=== PATIENT | female | born 1930 | race Caucasian/White ===

== ENCOUNTER 2016-12-19 09:06 | Emergency (ER) | payer MEDICARE ==
[~2016-12-19] VITALS: Ht 165.1 cm; Wt 74.4 kg
[~2016-12-19 09:06] MED LIST: ARTISOL10 OU; BENI; BENI20TA11 OR; BENICAR/HCTZ PO; CALCCHW12 OR; FERR325T OR; VIT D 2000 OR
[2016-12-19] MEDS ORDERED: SYSTSOL14 OU (09:17)
[2016-12-19] MEDS ORDERED: PRESCAP PO (09:17)
[2016-12-19] MEDS ORDERED: LOSA100T PO (09:17)
[2016-12-19] MEDS ORDERED: ALEV220C2 PO (09:17)
--- NOTE | 2016-12-19 09:56 | REP ---
Right hip series: Two views. History: Hip pain. No known injury. Findings: AP and frog-leg views of the right hip demonstrate mild femoral acetabular spurring and narrowing. No erosive changes seen. No fractures noted. There is some diffuse osteopenia. Impression: Mild right hip joint osteoarthritic spurring. Diffuse osteopenia. No acute bony abnormality. Signed by Yaron Hightower MD 12/19/2016 12:30 P
[2016-12-19] MEDS ORDERED: ACET30TAB PO (10:12)
[2016-12-19 10:18] VITALS: BP 150/67
== END 2016-12-19 10:42 | disposition home or self-care (01) ==
LOC: M ED 09:58
DX: M70.71 Other bursitis of hip, right hip (principal); I10 Essential (primary) hypertension; Z90.79 Acquired absence of other genital organ(s); Z79.899 Other long term (current) drug therapy

== ENCOUNTER → 2017-03-24 | Outpatient (CLI) | payer MEDICARE ==
[~2017-03-24] MED LIST changes: +ACET30TAB PO; +ALEV220C2 PO; +LOSA100T8 PO; +PRESCAP PO; +SYSTSOL14 OU
--- NOTE | 2017-03-24 10:37 | REP ---
CHEST, TWO VIEWS: HISTORY: Hypertension. COMPARISON: 05/21/2010 The lungs are hyperinflated. An increase in the interstitial markings is present in the lungs consistent with chronic interstitial fibrosis. The cardiac silhouette is enlarged. The pulmonary vasculature is normal in appearance. Degenerative changes is present in the thoracic spine. IMPRESSION: 1. Chronic interstitial fibrosis. 2. Cardiomegaly. Signed by Arcenio John MD 03/24/2017 11:29 A
[2017-03-24 10:44] LABS: ANION GAP 8 MEQ/L (8-16); BLOOD UREA NITROGEN 12 MG/DL (7-18); CALCIUM LEVEL 8.6 MG/DL (8.8-10.2); CARBON DIOXIDE LEVEL 30 MEQ/L (21-32); CHLORIDE LEVEL 102 MEQ/L (98-107); CREATININE FOR GFR 0.76 MG/DL (0.55-1.02); GLOMERULAR FILTRATION RATE > 60.0 (>32); GLUCOSE, FASTING 101 MG/DL (83-110); POTASSIUM SERUM 3.9 MEQ/L (3.5-5.1); SODIUM LEVEL 140 MEQ/L (136-145)
--- NOTE | 2017-03-24 14:49 | ECGEPIP ---
Stationary ECG Study [facility] Test Date: 2017-03-24 Pat Name: OJ OSWALD Department: Room: - Gender: F Site Manager: : [id number] Requested By: DAO Berumen Order Number: [id number] Reading MD: Cinthia Noel Measurements Intervals [place] Rate: 85 P: -30 NH: 182 QRS: -25 QRSD: 90 T: 30 QT: 367 QTc: 437 Interpretive Statements SINUS RHYTHM SEPTAL MYOCARDIAL INFARCTION, OF INDETERMINATE AGE POSSIBLE Left axis deviation NO PRIOR Electronically Signed On 03-24-2017 14:49:26 EDT by Cinthia Noel
== END ==
LOC: M LAB 09:31
PROVIDERS: ATTEND Ophthalmology
DX: J84.10 Pulmonary fibrosis, unspecified (principal); I51.7 Cardiomegaly

== ENCOUNTER → 2020-11-27 | Outpatient (REF) | payer MEDICARE ==
[~2020-11-27] MED LIST changes: +ACET-716 PO; -ACET30TAB PO
== END ==
LOC: M LAB REF 16:13
PROVIDERS: ATTEND Internal Medicine
DX: G31.84 Mild cognitive impairment of uncertain or unknown etiology (principal)

== ENCOUNTER → 2021-01-07 | Outpatient (CLI) | payer MEDICARE ==
--- NOTE | 2021-01-07 14:55 | REPVR ---
PROCEDURE INFORMATION: Exam: MR Head Without Contrast Exam date and time: 01/07/2021 2:34 PM Age: 89 years old Clinical indication: Other: Cognitive impairment TECHNIQUE: Imaging protocol: MR of the head without contrast. COMPARISON: No relevant prior studies available. FINDINGS: Brain: There is mild patchy increased T2 signal intensity within the bilateral cerebral periventricular white matter, consistent with chronic microvascular ischemic changes. There are multiple small focal areas of chronic ischemia in bilateral frontal, parietal and periatrial white matter. There is no abnormal diffusion weighted signal intensity to suggest an acute ischemic event. There is moderate diffuse cerebral atrophy present, consistent with this patient's age. Cerebral ventricles: The ventricular system demonstrates moderate diffuse compensatory enlargement. Bones/joints: Unremarkable. Paranasal sinuses: Mild mucosal thickening is seen in the paranasal sinuses. Mastoid air cells: Normal as visualized. No mastoid effusion. Orbital cavity: Unremarkable. Soft tissues: Unremarkable. IMPRESSION: 1. No acute infarction, masses or hemorrhage is seen. No acute intracranial abnormality is identified. 2. Diffuse age-related cerebral atrophy and mild chronic microvascular white matter ischemic changes, without evidence of an acute intracranial abnormality. Electronically signed by: Lion Machado On 01/07/2021 14:54:51 PM
== END ==
LOC: M RAD 13:16
PROVIDERS: ATTEND Internal Medicine
DX: G31.84 Mild cognitive impairment of uncertain or unknown etiology (principal)

== ENCOUNTER 2022-02-02 11:01 | Inpatient (IN) | payer MEDICARE ==
[~2022-02-02] VITALS: Ht 165.1 cm; Wt 70.0 kg
[2022-02-02] MEDS: OLMESARTAN MEDOXOMIL 20 MG TAB (BENICAR) PO SCH (09:00)
[2022-02-02 12:42] LABS: BASO % 0.1 % (0.0-1.0); EOS % 0.1 % (0.0-3.0); HEMATOCRIT 41.8 % (36.0-47.0); HEMOGLOBIN 13.6 g/dl (12.0-15.5); LYMPH # 1.6 10^3/uL (1.5-5.0); LYMPH % 23.8 % (24.0-44.0); MEAN CORPUSCULAR HEMOGLOBIN 27.1 pg (27.0-33.0); MEAN CORPUSCULAR HGB CONC 32.5 g/dl (32.0-36.5); MEAN CORPUSCULAR VOLUME 83.4 fl (80.0-96.0); MONO # 0.5 10^3/uL (0.0-0.8); MONO % 7.4 % (2.0-8.0); NEUTROPHILS # 4.7 10^3/uL (1.5-8.5); NEUTROPHILS % 68.3 % (36.0-66.0); PLATELET COUNT, AUTOMATED 268 10^3/uL (150-450); RED BLOOD COUNT 5.01 10^6/uL (4.00-5.40); WHITE BLOOD COUNT 6.9 10^3/uL (4.0-10.0)
[2022-02-02 13:27] LABS: ALBUMIN 3.8 GM/DL (3.2-5.2); BILIRUBIN,DIRECT 0.4 MG/DL (0.0-0.2); BILIRUBIN,TOTAL 1.4 MG/DL (0.2-1.0); CALCIUM LEVEL 8.9 MG/DL (8.8-10.2); CREATININE FOR GFR 1.22 MG/DL (0.55-1.30); GLOMERULAR FILTRATION RATE 44.2 (>32); POTASSIUM SERUM 2.4 MEQ/L (3.5-5.1); TOTAL PROTEIN 6.6 GM/DL (6.4-8.2)
[2022-02-02] MEDS ORDERED: POTASSIUM CHLORIDE 10MEQ SR TABLET PO ONE (14:10)
[2022-02-02] MEDS ORDERED: KCL 10MEQ/100ML SWI (KRUN) 10 MEQ in IV 1 EA IV ONE (14:15)
[2022-02-02] MEDS: NS 1,000 ML IV SCH (14:39)
[2022-02-02 15:14] LABS: RSV AMPLIFICATION NEGATIVE (NEGATIVE)
[2022-02-02 16:05] LABS: MAGNESIUM LEVEL 1.7 MG/DL (1.8-2.4)
[2022-02-02] MEDS ORDERED: OLME1TAB51 PO (16:48)
[2022-02-02] MEDS ORDERED: PRESCAP PO (16:48)
[2022-02-02] MEDS ORDERED: HOME MED LIST COMPLETE! XX SCH (16:50)
[2022-02-02 18:00] VITALS: BP 132/78
[2022-02-02] MEDS ORDERED: LOPERAMIDE 2 MG CAPLET PO ONE ×2 (19:15→20:00)
[2022-02-02] MEDS ORDERED: PINK BISMUTH SUSP 524MG/30ML ORAL SYRINGE PO PRN (19:15)
[2022-02-02 20:46] LABS: CALCIUM LEVEL 9.2 MG/DL (8.8-10.2); CREATININE FOR GFR 1.25 MG/DL (0.55-1.30)
[2022-02-02 22:00] VITALS: BP 133/78
[2022-02-03] MEDS ORDERED: LOPERAMIDE 2 MG CAPLET PO ONE (02:00)
[2022-02-03] MEDS: NS 1,000 ML IV SCH ×3 (05:35→20:10)
[2022-02-03 06:00] VITALS: BP 126/64
[2022-02-03 06:14] LABS: HEMOGLOBIN 12.9 g/dl (12.0-15.5); MEAN CORPUSCULAR HEMOGLOBIN 26.9 pg (27.0-33.0); MEAN CORPUSCULAR HGB CONC 32.3 g/dl (32.0-36.5); MEAN CORPUSCULAR VOLUME 83.3 fl (80.0-96.0); PLATELET COUNT, AUTOMATED 241 10^3/uL (150-450); WHITE BLOOD COUNT 6.6 10^3/uL (4.0-10.0)
[2022-02-03 06:43] LABS: ALBUMIN 3.4 GM/DL (3.2-5.2); BILIRUBIN,TOTAL 1.3 MG/DL (0.2-1.0); C REACTIVE PROTEIN QUANTITATIV 0.67 MG/DL (0.00-0.30); CALCIUM LEVEL 8.7 MG/DL (8.8-10.2); CREATININE FOR GFR 1.05 MG/DL (0.55-1.30); FREE T3 2.7 PG/ML (2.2-4.0); FREE T4 1.43 NG/DL (0.76-1.46); GLOMERULAR FILTRATION RATE 52.5 (>32); POTASSIUM SERUM 2.6 MEQ/L (3.5-5.1); THYROID STIMULATING HORMONE 1.36 uIU/ML (0.358-3.740); TOTAL PROTEIN 6.2 GM/DL (6.4-8.2)
[2022-02-03 06:53] LABS: ERYTHROCYTE SEDIMENTATION RATE 12 mm/hr (0-30)
[2022-02-03] MEDS ORDERED: POTASSIUM CHLORIDE 10MEQ SR TABLET PO ONE ×2 (08:00→16:10)
[2022-02-03 08:05] LABS: MAGNESIUM LEVEL 1.6 MG/DL (1.8-2.4)
[2022-02-03] MEDS: ENOXAPARIN 40MG/0.4ML SYRINGE (J1650 PER 10MG) SC SCH (08:22)
[2022-02-03] MEDS: KCL 10MEQ/100ML SWI (KRUN) 10 MEQ in IV 1 EA IV SCH ×4 (08:22→15:37)
[2022-02-03] MEDS: OLMESARTAN MEDOXOMIL 20 MG TAB (BENICAR) PO SCH (08:27)
[2022-02-03] MEDS: LACTOBACILLUS ACIDOPHILUS CAP (BACID) PO SCH (08:27)
[2022-02-03] MEDS ORDERED: LOSARTAN 50MG TABLET PO SCH (09:00)
[2022-02-03] MEDS ORDERED: MAG SULF 1GM/100ML (MAG RUN) 1 GM in IV 1 EA IV ONE ×2 (09:55→11:00)
[2022-02-03] MEDS: LOPERAMIDE 2 MG CAPLET PO PRN ×4 (10:25→18:20)
[2022-02-03] MEDS ORDERED: ISOVUE-370 76% 100ML VIAL As Ordered ONE (11:20)
[2022-02-03] MEDS: CHOLESTYRAMINE 4 GM PWD PKT PO SCH (15:42)
[2022-02-03 20:50] LABS: CALCIUM LEVEL 9.1 MG/DL (8.8-10.2); CREATININE FOR GFR 1.27 MG/DL (0.55-1.30); GLOMERULAR FILTRATION RATE 42.2 (>32)
[2022-02-03] MEDS: QUEtiapine FUMARATE 25 MG TAB PO SCH (21:00)
[2022-02-04] MEDS ORDERED: POTASSIUM CHLORIDE 10MEQ SR TABLET PO ONE ×2 (00:55→20:15)
[2022-02-04] MEDS: LOPERAMIDE 2 MG CAPLET PO PRN ×4 (01:21→19:22)
[2022-02-04 05:18] VITALS: BP 135/55
[2022-02-04] MEDS: NS 1,000 ML IV SCH ×2 (05:41→16:10)
[2022-02-04 06:35] LABS: HEMATOCRIT 44.1 % (36.0-47.0); HEMOGLOBIN 14.1 g/dl (12.0-15.5); MEAN CORPUSCULAR HEMOGLOBIN 26.7 pg (27.0-33.0); MEAN CORPUSCULAR VOLUME 83.4 fl (80.0-96.0); PLATELET COUNT, AUTOMATED 295 10^3/uL (150-450); RED BLOOD COUNT 5.29 10^6/uL (4.00-5.40); WHITE BLOOD COUNT 7.1 10^3/uL (4.0-10.0)
[2022-02-04 07:03] LABS: ALBUMIN 3.8 GM/DL (3.2-5.2); BILIRUBIN,TOTAL 1.1 MG/DL (0.2-1.0); CALCIUM LEVEL 9.3 MG/DL (8.8-10.2); CREATININE FOR GFR 1.13 MG/DL (0.55-1.30); GLOMERULAR FILTRATION RATE 48.3 (>32); POTASSIUM SERUM 3.6 MEQ/L (3.5-5.1); TOTAL PROTEIN 6.7 GM/DL (6.4-8.2)
[2022-02-04] MEDS: ENOXAPARIN 40MG/0.4ML SYRINGE (J1650 PER 10MG) SC SCH (09:02)
[2022-02-04] MEDS: LACTOBACILLUS ACIDOPHILUS CAP (BACID) PO SCH (09:05)
[2022-02-04] MEDS: OLMESARTAN MEDOXOMIL 20 MG TAB (BENICAR) PO SCH (09:05)
[2022-02-04] MEDS: POTASSIUM CHLORIDE 10MEQ SR TABLET PO SCH (09:59)
[2022-02-04 13:38] LABS: MAGNESIUM LEVEL 2.5 MG/DL (1.8-2.4); POTASSIUM SERUM 3.5 MEQ/L (3.5-5.1)
[2022-02-04] MEDS: CHOLESTYRAMINE 4 GM PWD PKT PO SCH (13:45)
[2022-02-04 14:00] VITALS: BP 119/54
[2022-02-04] MEDS: QUEtiapine FUMARATE 25 MG TAB PO SCH (21:00)
[2022-02-04 21:48] VITALS: BP 116/57
[2022-02-05] MEDS: LOPERAMIDE 2 MG CAPLET PO PRN ×3 (01:32→19:43)
[2022-02-05] MEDS: NS 1,000 ML IV SCH ×3 (02:10→16:49)
[2022-02-05 06:00] VITALS: BP 108/43
[2022-02-05 06:01] LABS: HEMATOCRIT 43.4 % (36.0-47.0); HEMOGLOBIN 13.5 g/dl (12.0-15.5); MEAN CORPUSCULAR HEMOGLOBIN 26.7 pg (27.0-33.0); MEAN CORPUSCULAR HGB CONC 31.1 g/dl (32.0-36.5); MEAN CORPUSCULAR VOLUME 85.9 fl (80.0-96.0); PLATELET COUNT, AUTOMATED 263 10^3/uL (150-450); RED BLOOD COUNT 5.05 10^6/uL (4.00-5.40)
[2022-02-05 06:26] LABS: ALBUMIN 3.5 GM/DL (3.2-5.2); BILIRUBIN,TOTAL 0.8 MG/DL (0.2-1.0); CALCIUM LEVEL 9.4 MG/DL (8.8-10.2); CREATININE FOR GFR 1.64 MG/DL (0.55-1.30); GLOMERULAR FILTRATION RATE 31.4 (>32); POTASSIUM SERUM 3.2 MEQ/L (3.5-5.1); TOTAL PROTEIN 6.5 GM/DL (6.4-8.2)
[2022-02-05] MEDS: LACTOBACILLUS ACIDOPHILUS CAP (BACID) PO SCH (08:30)
[2022-02-05] MEDS: POTASSIUM CHLORIDE 10MEQ SR TABLET PO SCH (08:31)
[2022-02-05] MEDS: ENOXAPARIN 40MG/0.4ML SYRINGE (J1650 PER 10MG) SC SCH (08:31)
[2022-02-05] MEDS: OLMESARTAN MEDOXOMIL 20 MG TAB (BENICAR) PO SCH (08:31)
[2022-02-05] MEDS ORDERED: POTASSIUM CHLORIDE 10MEQ SR TABLET PO ONE (12:00)
[2022-02-05 14:00] VITALS: BP 104/45
[2022-02-05] MEDS: CHOLESTYRAMINE 4 GM PWD PKT PO SCH (14:26)
[2022-02-05] MEDS ORDERED: LIDOCAINE 1% MDV 20ML VIAL As Ordered ONE (15:44)
[2022-02-05] MEDS: QUEtiapine FUMARATE 25 MG TAB PO SCH (19:43)
[2022-02-05] MEDS ORDERED: SODIUM CHLORIDE 0.9% INJ 10 ML SYR IV PRN (20:05)
[2022-02-05] MEDS: SODIUM CHLORIDE 0.9% INJ 10 ML SYR IV SCH (21:23)
[2022-02-05 22:00] VITALS: BP 114/52
[2022-02-06] MEDS: LOPERAMIDE 2 MG CAPLET PO PRN ×2 (04:28→20:15)
[2022-02-06 06:00] VITALS: BP 106/40
[2022-02-06 06:17] LABS: HEMATOCRIT 39.6 % (36.0-47.0); HEMOGLOBIN 12.3 g/dl (12.0-15.5); MEAN CORPUSCULAR HGB CONC 31.1 g/dl (32.0-36.5); PLATELET COUNT, AUTOMATED 237 10^3/uL (150-450); RED BLOOD COUNT 4.55 10^6/uL (4.00-5.40)
[2022-02-06 06:33] LABS: ALBUMIN 3.3 GM/DL (3.2-5.2); BILIRUBIN,TOTAL 0.6 MG/DL (0.2-1.0); CALCIUM LEVEL 8.6 MG/DL (8.8-10.2); CREATININE FOR GFR 2.52 MG/DL (0.55-1.30); GLOMERULAR FILTRATION RATE 19.1 (>32); POTASSIUM SERUM 3.5 MEQ/L (3.5-5.1)
[2022-02-06] MEDS: LACTOBACILLUS ACIDOPHILUS CAP (BACID) PO SCH (08:22)
[2022-02-06] MEDS: ENOXAPARIN 40MG/0.4ML SYRINGE (J1650 PER 10MG) SC SCH (08:22)
[2022-02-06] MEDS: POTASSIUM CHLORIDE 10MEQ SR TABLET PO SCH (08:22)
[2022-02-06] MEDS: NS 1,000 ML IV SCH ×2 (08:23→15:45)
[2022-02-06] MEDS: CHOLESTYRAMINE 4 GM PWD PKT PO SCH (10:27)
[2022-02-06 14:00] VITALS: BP 123/41
[2022-02-06] MEDS: SODIUM CHLORIDE 0.9% INJ 10 ML SYR IV SCH (20:13)
[2022-02-06 22:00] VITALS: BP 115/48
[2022-02-07] MEDS: NS 1,000 ML IV SCH ×4 (02:25→23:07)
[2022-02-07 06:00] VITALS: BP 142/69
[2022-02-07 07:08] LABS: WHITE BLOOD COUNT 8.5 10^3/uL (4.0-10.0)
[2022-02-07 07:09] LABS: HEMATOCRIT 41.2 % (36.0-47.0); HEMOGLOBIN 12.9 g/dl (12.0-15.5); MEAN CORPUSCULAR HEMOGLOBIN 27.3 pg (27.0-33.0); MEAN CORPUSCULAR HGB CONC 31.3 g/dl (32.0-36.5); MEAN CORPUSCULAR VOLUME 87.1 fl (80.0-96.0); PLATELET COUNT, AUTOMATED 251 10^3/uL (150-450); RED BLOOD COUNT 4.73 10^6/uL (4.00-5.40)
[2022-02-07 07:33] LABS: ALBUMIN 3.3 GM/DL (3.2-5.2); BILIRUBIN,TOTAL 0.8 MG/DL (0.2-1.0); CALCIUM LEVEL 8.4 MG/DL (8.8-10.2); CREATININE FOR GFR 2.06 MG/DL (0.55-1.30); GLOMERULAR FILTRATION RATE 24.1 (>32); POTASSIUM SERUM 3.6 MEQ/L (3.5-5.1); TOTAL PROTEIN 6.1 GM/DL (6.4-8.2)
[2022-02-07] MEDS: CHOLESTYRAMINE 4 GM PWD PKT PO SCH (09:15)
[2022-02-07] MEDS: POTASSIUM CHLORIDE 10MEQ SR TABLET PO SCH (09:15)
[2022-02-07] MEDS: ENOXAPARIN 40MG/0.4ML SYRINGE (J1650 PER 10MG) SC SCH (09:16)
[2022-02-07] MEDS: LACTOBACILLUS ACIDOPHILUS CAP (BACID) PO SCH (09:16)
[2022-02-07] MEDS: LOPERAMIDE 2 MG CAPLET PO PRN ×2 (09:20→14:04)
[2022-02-07] MEDS: amLODIPine 5 MG TAB PO SCH (11:17)
[2022-02-07 14:00] VITALS: BP 130/70
[2022-02-07] MEDS: SODIUM CHLORIDE 0.9% INJ 10 ML SYR IV SCH (20:05)
[2022-02-07 22:00] VITALS: BP 132/69
[2022-02-08] MEDS: NS 1,000 ML IV SCH ×3 (03:10→15:56)
[2022-02-08] MEDS: LOPERAMIDE 2 MG CAPLET PO PRN ×3 (03:11→21:28)
[2022-02-08 06:00] VITALS: BP 135/68
[2022-02-08 06:48] LABS: HEMATOCRIT 37.1 % (36.0-47.0); HEMOGLOBIN 11.9 g/dl (12.0-15.5); MEAN CORPUSCULAR HEMOGLOBIN 27.3 pg (27.0-33.0); MEAN CORPUSCULAR HGB CONC 32.1 g/dl (32.0-36.5); MEAN CORPUSCULAR VOLUME 85.1 fl (80.0-96.0); PLATELET COUNT, AUTOMATED 231 10^3/uL (150-450); RED BLOOD COUNT 4.36 10^6/uL (4.00-5.40); WHITE BLOOD COUNT 6.9 10^3/uL (4.0-10.0)
[2022-02-08 07:20] LABS: CREATININE FOR GFR 1.42 MG/DL (0.55-1.30); GLOMERULAR FILTRATION RATE 37.1 (>32); POTASSIUM SERUM 3.6 MEQ/L (3.5-5.1)
[2022-02-08] MEDS: ENOXAPARIN 40MG/0.4ML SYRINGE (J1650 PER 10MG) SC SCH (09:32)
[2022-02-08] MEDS: POTASSIUM CHLORIDE 10MEQ SR TABLET PO SCH (09:32)
[2022-02-08] MEDS: CHOLESTYRAMINE 4 GM PWD PKT PO SCH (09:32)
[2022-02-08] MEDS: LACTOBACILLUS ACIDOPHILUS CAP (BACID) PO SCH (09:32)
[2022-02-08] MEDS: amLODIPine 5 MG TAB PO SCH (09:35)
[2022-02-08 14:00] VITALS: BP 133/71
[2022-02-08] MEDS: SODIUM CHLORIDE 0.9% INJ 10 ML SYR IV SCH (20:05)
[2022-02-08] MEDS: RAMELTEON 8 MG TAB (ROZEREM) PO PRN ×2 (20:09→21:28)
[2022-02-08 20:56] VITALS: BP 129/64
[2022-02-09 05:41] VITALS: BP 130/65
[2022-02-09 06:12] LABS: HEMOGLOBIN 11.2 g/dl (12.0-15.5); MEAN CORPUSCULAR HEMOGLOBIN 27.7 pg (27.0-33.0); MEAN CORPUSCULAR HGB CONC 32.9 g/dl (32.0-36.5); MEAN CORPUSCULAR VOLUME 84.2 fl (80.0-96.0); PLATELET COUNT, AUTOMATED 216 10^3/uL (150-450); RED BLOOD COUNT 4.04 10^6/uL (4.00-5.40); WHITE BLOOD COUNT 5.4 10^3/uL (4.0-10.0)
[2022-02-09 06:41] LABS: CALCIUM LEVEL 7.9 MG/DL (8.8-10.2); CREATININE FOR GFR 1.16 MG/DL (0.55-1.30); GLOMERULAR FILTRATION RATE 46.8 (>32); POTASSIUM SERUM 3.5 MEQ/L (3.5-5.1)
[2022-02-09] MEDS: ENOXAPARIN 40MG/0.4ML SYRINGE (J1650 PER 10MG) SC SCH (09:39)
[2022-02-09] MEDS: POTASSIUM CHLORIDE 10MEQ SR TABLET PO SCH (09:44)
[2022-02-09] MEDS: CHOLESTYRAMINE 4 GM PWD PKT PO SCH (09:44)
[2022-02-09] MEDS: LACTOBACILLUS ACIDOPHILUS CAP (BACID) PO SCH (09:44)
[2022-02-09] MEDS: amLODIPine 5 MG TAB PO SCH (09:44)
[2022-02-09 14:00] VITALS: BP 135/45
[2022-02-09] MEDS: SODIUM CHLORIDE 0.9% INJ 10 ML SYR IV SCH (20:39)
[2022-02-09 20:55] VITALS: BP 131/78
[2022-02-10 06:00] VITALS: BP 149/76
[2022-02-10 06:28] LABS: HEMOGLOBIN 11.1 g/dl (12.0-15.5); MEAN CORPUSCULAR HEMOGLOBIN 27.5 pg (27.0-33.0); MEAN CORPUSCULAR HGB CONC 32.6 g/dl (32.0-36.5); MEAN CORPUSCULAR VOLUME 84.2 fl (80.0-96.0); PLATELET COUNT, AUTOMATED 238 10^3/uL (150-450); RED BLOOD COUNT 4.04 10^6/uL (4.00-5.40); WHITE BLOOD COUNT 4.3 10^3/uL (4.0-10.0)
[2022-02-10 06:48] LABS: CALCIUM LEVEL 8.1 MG/DL (8.8-10.2); CREATININE FOR GFR 1.11 MG/DL (0.55-1.30); GLOMERULAR FILTRATION RATE 49.3 (>32); POTASSIUM SERUM 3.5 MEQ/L (3.5-5.1)
[2022-02-10] MEDS: amLODIPine 5 MG TAB PO SCH (09:27)
[2022-02-10] MEDS: ENOXAPARIN 40MG/0.4ML SYRINGE (J1650 PER 10MG) SC SCH (09:27)
[2022-02-10] MEDS: KCL 20MEQ IN 0.45NS 1000ML 1,000 ML IV SCH (09:28)
[2022-02-10] MEDS: LACTOBACILLUS ACIDOPHILUS CAP (BACID) PO SCH (09:28)
[2022-02-10] MEDS: POTASSIUM CHLORIDE 10MEQ SR TABLET PO SCH (09:28)
[2022-02-10 14:00] VITALS: BP 138/75
[2022-02-10 17:09] LABS: CALPROTECTIN STOOL 120 ug/g (0-120); FATS NEUTRAL Increased (.); FATS TOTAL Increased (.); PANCREATIC ELASTASE STOOL 50 (>200)
[2022-02-10 17:23] LABS: CALCIUM LEVEL 8.3 MG/DL (8.8-10.2); CREATININE FOR GFR 1.15 MG/DL (0.55-1.30); GLOMERULAR FILTRATION RATE 47.3 (>32); POTASSIUM SERUM 3.3 MEQ/L (3.5-5.1)
[2022-02-10] MEDS: NITROFURANTOIN (MACROBID) 100 MG CAP PO SCH (20:07)
[2022-02-10] MEDS: SODIUM CHLORIDE 0.9% INJ 10 ML SYR IV SCH (20:07)
[2022-02-10 20:30] VITALS: BP 152/71
[2022-02-11] MEDS: KCL 20MEQ IN 0.45NS 1000ML 1,000 ML IV SCH ×2 (01:47→16:33)
[2022-02-11] MEDS ORDERED: MOM 30ML SUSPENSION UDC PO PRN (03:10)
[2022-02-11 06:03] VITALS: BP 118/66
[2022-02-11 06:08] LABS: HEMATOCRIT 33.8 % (36.0-47.0); MEAN CORPUSCULAR HEMOGLOBIN 26.6 pg (27.0-33.0); MEAN CORPUSCULAR HGB CONC 32.5 g/dl (32.0-36.5); MEAN CORPUSCULAR VOLUME 81.8 fl (80.0-96.0); PLATELET COUNT, AUTOMATED 218 10^3/uL (150-450); RED BLOOD COUNT 4.13 10^6/uL (4.00-5.40); WHITE BLOOD COUNT 4.9 10^3/uL (4.0-10.0)
[2022-02-11 06:29] LABS: CALCIUM LEVEL 7.8 MG/DL (8.8-10.2); CREATININE FOR GFR 0.96 MG/DL (0.55-1.30); GLOMERULAR FILTRATION RATE 58.3 (>32); POTASSIUM SERUM 3.3 MEQ/L (3.5-5.1)
[2022-02-11 08:30] LABS: ABG BASE EXCESS -9.8 (-2.0-2.0); ABG HCO3 14.3 MEQ/L (22.0-26.0); ABG O2 SATURATION 97.7 % (95.0-99.0); ABG PARTIAL PRESSURE CO2 26.8 mmHg (35.0-45.0); ABG STANDARD HCO3 16.7 MEQ/L (22.0-26.0); ABG TOTAL CO2 15.2 MEQ/L (23.0-31.0); ABG pH (ARTERIAL) 7.346 UNITS (7.350-7.450)
[2022-02-11 08:48] LABS: POTASSIUM RANDOM URINE 18.4 MEQ/L
[2022-02-11] MEDS: LACTOBACILLUS ACIDOPHILUS CAP (BACID) PO SCH (09:15)
[2022-02-11] MEDS: NITROFURANTOIN (MACROBID) 100 MG CAP PO SCH ×2 (09:15→21:22)
[2022-02-11] MEDS: POTASSIUM CHLORIDE 10MEQ SR TABLET PO SCH (09:15)
[2022-02-11] MEDS: ENOXAPARIN 40MG/0.4ML SYRINGE (J1650 PER 10MG) SC SCH (09:16)
[2022-02-11] MEDS: amLODIPine 5 MG TAB PO SCH (09:16)
[2022-02-11 14:00] VITALS: BP 152/67
[2022-02-11 20:27] VITALS: BP 149/73
[2022-02-11] MEDS: SODIUM CHLORIDE 0.9% INJ 10 ML SYR IV SCH (21:22)
[2022-02-12 05:39] VITALS: BP 136/67
[2022-02-12 06:18] LABS: HEMATOCRIT 33.2 % (36.0-47.0); HEMOGLOBIN 10.7 g/dl (12.0-15.5); MEAN CORPUSCULAR HEMOGLOBIN 26.9 pg (27.0-33.0); MEAN CORPUSCULAR HGB CONC 32.2 g/dl (32.0-36.5); MEAN CORPUSCULAR VOLUME 83.4 fl (80.0-96.0); PLATELET COUNT, AUTOMATED 193 10^3/uL (150-450); RED BLOOD COUNT 3.98 10^6/uL (4.00-5.40); WHITE BLOOD COUNT 4.4 10^3/uL (4.0-10.0)
[2022-02-12 07:00] LABS: BLOOD UREA NITROGEN 27 MG/DL (7-18); CREATININE FOR GFR 0.74 MG/DL (0.55-1.30); GLUCOSE, FASTING 85 MG/DL (70-100)
[2022-02-12 07:01] LABS: CALCIUM LEVEL 7.7 MG/DL (8.8-10.2); CARBON DIOXIDE LEVEL 16 MEQ/L (21-32); CHLORIDE LEVEL 127 MEQ/L (98-107); GLOMERULAR FILTRATION RATE > 60.0 (>32); POTASSIUM SERUM 3.9 MEQ/L (3.5-5.1); SODIUM LEVEL 148 MEQ/L (136-145)
[2022-02-12] MEDS: KCL 20MEQ IN 0.45NS 1000ML 1,000 ML IV SCH (09:23)
[2022-02-12] MEDS: ENOXAPARIN 40MG/0.4ML SYRINGE (J1650 PER 10MG) SC SCH (09:23)
[2022-02-12] MEDS: POTASSIUM CHLORIDE 10MEQ SR TABLET PO SCH (09:24)
[2022-02-12] MEDS: NYSTATIN 500,000 U/5 ML SUSP UDC SS SCH ×3 (09:25→20:36)
[2022-02-12] MEDS: NITROFURANTOIN (MACROBID) 100 MG CAP PO SCH (09:25)
[2022-02-12] MEDS: LACTOBACILLUS ACIDOPHILUS CAP (BACID) PO SCH (09:25)
[2022-02-12] MEDS: amLODIPine 5 MG TAB PO SCH (09:26)
[2022-02-12] MEDS: CEFDINIR 300 MG CAP (OMNICEF) PO SCH ×2 (10:29→20:36)
[2022-02-12 14:00] VITALS: BP 131/62
[2022-02-12 20:03] VITALS: BP 148/66
[2022-02-12] MEDS: SODIUM CHLORIDE 0.9% INJ 10 ML SYR IV SCH (21:08)
[2022-02-13] MEDS: KCL 20MEQ IN 0.45NS 1000ML 1,000 ML IV SCH (02:53)
[2022-02-13 05:21] VITALS: BP 149/67
[2022-02-13 06:24] LABS: HEMATOCRIT 30.7 % (36.0-47.0); HEMOGLOBIN 10.1 g/dl (12.0-15.5); MEAN CORPUSCULAR HEMOGLOBIN 27.7 pg (27.0-33.0); MEAN CORPUSCULAR HGB CONC 32.9 g/dl (32.0-36.5); MEAN CORPUSCULAR VOLUME 84.3 fl (80.0-96.0); PLATELET COUNT, AUTOMATED 190 10^3/uL (150-450); RED BLOOD COUNT 3.64 10^6/uL (4.00-5.40); WHITE BLOOD COUNT 4.4 10^3/uL (4.0-10.0)
[2022-02-13 06:43] LABS: BLOOD UREA NITROGEN 18 MG/DL (7-18); CALCIUM LEVEL 7.6 MG/DL (8.8-10.2); CARBON DIOXIDE LEVEL 19 MEQ/L (21-32); CHLORIDE LEVEL 121 MEQ/L (98-107); CREATININE FOR GFR 0.68 MG/DL (0.55-1.30); GLOMERULAR FILTRATION RATE > 60.0 (>32); GLUCOSE, FASTING 83 MG/DL (70-100); POTASSIUM SERUM 4.3 MEQ/L (3.5-5.1); SODIUM LEVEL 145 MEQ/L (136-145)
[2022-02-13] MEDS: amLODIPine 5 MG TAB PO SCH (09:44)
[2022-02-13] MEDS: POTASSIUM CHLORIDE 10MEQ SR TABLET PO SCH (09:44)
[2022-02-13] MEDS: LACTOBACILLUS ACIDOPHILUS CAP (BACID) PO SCH (09:45)
[2022-02-13] MEDS: CEFDINIR 300 MG CAP (OMNICEF) PO SCH ×2 (09:45→21:16)
[2022-02-13] MEDS: ENOXAPARIN 40MG/0.4ML SYRINGE (J1650 PER 10MG) SC SCH (09:45)
[2022-02-13] MEDS: NYSTATIN 500,000 U/5 ML SUSP UDC SS SCH ×3 (09:45→21:16)
[2022-02-13] MEDS ORDERED: ACETAMINOPHEN TAB 650MG DOSE (2X325MG) PO PRN (11:05)
[2022-02-13 14:00] VITALS: BP 125/67
[2022-02-13 21:00] VITALS: BP 132/65
[2022-02-13] MEDS: RAMELTEON 8 MG TAB (ROZEREM) PO PRN (21:16)
[2022-02-13] MEDS: LIDOCAINE 5% (LIDODERM) PATCH TD SCH (21:16)
[2022-02-13] MEDS: SODIUM CHLORIDE 0.9% INJ 10 ML SYR IV SCH (21:17)
[2022-02-14 05:54] LABS: HEMATOCRIT 31.4 % (36.0-47.0); HEMOGLOBIN 10.1 g/dl (12.0-15.5); MEAN CORPUSCULAR HEMOGLOBIN 26.6 pg (27.0-33.0); MEAN CORPUSCULAR HGB CONC 32.2 g/dl (32.0-36.5); MEAN CORPUSCULAR VOLUME 82.6 fl (80.0-96.0); PLATELET COUNT, AUTOMATED 173 10^3/uL (150-450); WHITE BLOOD COUNT 4.2 10^3/uL (4.0-10.0)
[2022-02-14 06:00] VITALS: BP 137/64
[2022-02-14 06:21] LABS: BLOOD UREA NITROGEN 14 MG/DL (7-18); CALCIUM LEVEL 7.7 MG/DL (8.8-10.2); CARBON DIOXIDE LEVEL 19 MEQ/L (21-32); CHLORIDE LEVEL 119 MEQ/L (98-107); CREATININE FOR GFR 0.61 MG/DL (0.55-1.30); GLOMERULAR FILTRATION RATE > 60.0 (>32); GLUCOSE, FASTING 85 MG/DL (70-100); POTASSIUM SERUM 4.3 MEQ/L (3.5-5.1); SODIUM LEVEL 145 MEQ/L (136-145)
[2022-02-14] MEDS: LACTOBACILLUS ACIDOPHILUS CAP (BACID) PO SCH (09:54)
[2022-02-14] MEDS: CEFDINIR 300 MG CAP (OMNICEF) PO SCH ×2 (09:54→21:16)
[2022-02-14] MEDS: NYSTATIN 500,000 U/5 ML SUSP UDC SS SCH ×3 (09:54→21:12)
[2022-02-14] MEDS: amLODIPine 5 MG TAB PO SCH (09:55)
[2022-02-14] MEDS: POTASSIUM CHLORIDE 10MEQ SR TABLET PO SCH (09:56)
[2022-02-14] MEDS: ENOXAPARIN 40MG/0.4ML SYRINGE (J1650 PER 10MG) SC SCH (09:57)
[2022-02-14] MEDS: **NOTE PATIENT COMMENT** MISC XX SCH (09:57)
[2022-02-14] MEDS: SODIUM CHLORIDE 0.9% INJ 10 ML SYR IV SCH (21:16)
[2022-02-14] MEDS: LIDOCAINE 5% (LIDODERM) PATCH TD SCH (21:16)
[2022-02-15 06:00] VITALS: BP 145/61
[2022-02-15 07:55] LABS: HEMATOCRIT 31.4 % (36.0-47.0); HEMOGLOBIN 10.1 g/dl (12.0-15.5); MEAN CORPUSCULAR HEMOGLOBIN 27.2 pg (27.0-33.0); MEAN CORPUSCULAR HGB CONC 32.2 g/dl (32.0-36.5); MEAN CORPUSCULAR VOLUME 84.4 fl (80.0-96.0); PLATELET COUNT, AUTOMATED 162 10^3/uL (150-450); RED BLOOD COUNT 3.72 10^6/uL (4.00-5.40); WHITE BLOOD COUNT 3.9 10^3/uL (4.0-10.0)
[2022-02-15 08:21] LABS: BLOOD UREA NITROGEN 12 MG/DL (7-18); CALCIUM LEVEL 7.9 MG/DL (8.8-10.2); CARBON DIOXIDE LEVEL 21 MEQ/L (21-32); CHLORIDE LEVEL 114 MEQ/L (98-107); CREATININE FOR GFR 0.55 MG/DL (0.55-1.30); GLOMERULAR FILTRATION RATE > 60.0 (>32); GLUCOSE, FASTING 80 MG/DL (70-100); POTASSIUM SERUM 4.1 MEQ/L (3.5-5.1); SODIUM LEVEL 141 MEQ/L (136-145)
[2022-02-15] MEDS: amLODIPine 5 MG TAB PO SCH (09:45)
[2022-02-15] MEDS: POTASSIUM CHLORIDE 10MEQ SR TABLET PO SCH (09:49)
[2022-02-15] MEDS: NYSTATIN 500,000 U/5 ML SUSP UDC SS SCH ×3 (09:49→20:24)
[2022-02-15] MEDS: CEFDINIR 300 MG CAP (OMNICEF) PO SCH ×2 (09:49→20:24)
[2022-02-15] MEDS: LACTOBACILLUS ACIDOPHILUS CAP (BACID) PO SCH (09:49)
[2022-02-15] MEDS: **NOTE PATIENT COMMENT** MISC XX SCH (09:50)
[2022-02-15] MEDS: ENOXAPARIN 40MG/0.4ML SYRINGE (J1650 PER 10MG) SC SCH (09:52)
[2022-02-15] MEDS: LIDOCAINE 5% (LIDODERM) PATCH TD SCH ×2 (20:25→21:00)
[2022-02-15] MEDS: SODIUM CHLORIDE 0.9% INJ 10 ML SYR IV SCH (20:25)
[2022-02-15 23:55] VITALS: BP 125/57
[2022-02-16 00:33] LABS: BLOOD UREA NITROGEN 12 MG/DL (7-18); CALCIUM LEVEL 7.8 MG/DL (8.8-10.2); CARBON DIOXIDE LEVEL 24 MEQ/L (21-32); CHLORIDE LEVEL 110 MEQ/L (98-107); CREATININE FOR GFR 0.61 MG/DL (0.55-1.30); GLOMERULAR FILTRATION RATE > 60.0 (>32); GLUCOSE, FASTING 95 MG/DL (70-100); POTASSIUM SERUM 4.3 MEQ/L (3.5-5.1); SODIUM LEVEL 140 MEQ/L (136-145)
[2022-02-16 00:38] LABS: CK-MB VALUE MASS 2.7 NG/ML (<3.6); MB/CK RELATIVE INDEX 2.37 (< OR =4)
[2022-02-16 00:41] LABS: HEMATOCRIT 30.4 % (36.0-47.0); HEMOGLOBIN 9.8 g/dl (12.0-15.5); MEAN CORPUSCULAR HEMOGLOBIN 27.2 pg (27.0-33.0); MEAN CORPUSCULAR HGB CONC 32.2 g/dl (32.0-36.5); MEAN CORPUSCULAR VOLUME 84.4 fl (80.0-96.0); PLATELET COUNT, AUTOMATED 165 10^3/uL (150-450); WHITE BLOOD COUNT 3.8 10^3/uL (4.0-10.0)
[2022-02-16 01:16] LABS: ALBUMIN 2.5 GM/DL (3.2-5.2); ALT/SGPT 73 U/L (12-78); AMYLASE 50 U/L (25-115); BLOOD UREA NITROGEN 13 MG/DL (7-18); CALCIUM LEVEL 7.8 MG/DL (8.8-10.2); CARBON DIOXIDE LEVEL 24 MEQ/L (21-32); CHLORIDE LEVEL 110 MEQ/L (98-107); CREATININE FOR GFR 0.58 MG/DL (0.55-1.30); GLOMERULAR FILTRATION RATE > 60.0 (>32); GLUCOSE, FASTING 92 MG/DL (70-100); LIPASE 557 U/L (73-393); NT-PRO BNP 1068 PG/ML (<450); POTASSIUM SERUM 4.1 MEQ/L (3.5-5.1); SODIUM LEVEL 140 MEQ/L (136-145); TOTAL PROTEIN 4.6 GM/DL (6.4-8.2)
[2022-02-16 05:21] VITALS: BP 132/58
[2022-02-16] MEDS: NYSTATIN 500,000 U/5 ML SUSP UDC SS SCH ×3 (08:02→21:21)
[2022-02-16] MEDS: POTASSIUM CHLORIDE 10MEQ SR TABLET PO SCH (08:02)
[2022-02-16] MEDS: LACTOBACILLUS ACIDOPHILUS CAP (BACID) PO SCH (08:02)
[2022-02-16 08:04] LABS: HEMATOCRIT 33.7 % (36.0-47.0); MEAN CORPUSCULAR HEMOGLOBIN 27.2 pg (27.0-33.0); MEAN CORPUSCULAR HGB CONC 32.6 g/dl (32.0-36.5); MEAN CORPUSCULAR VOLUME 83.2 fl (80.0-96.0); PLATELET COUNT, AUTOMATED 160 10^3/uL (150-450); RED BLOOD COUNT 4.05 10^6/uL (4.00-5.40); WHITE BLOOD COUNT 4.4 10^3/uL (4.0-10.0)
[2022-02-16] MEDS: amLODIPine 5 MG TAB PO SCH (08:05)
[2022-02-16] MEDS: LIDOCAINE 5% (LIDODERM) PATCH TD SCH (08:11)
[2022-02-16] MEDS: ENOXAPARIN 40MG/0.4ML SYRINGE (J1650 PER 10MG) SC SCH (08:11)
[2022-02-16 08:24] LABS: BLOOD UREA NITROGEN 10 MG/DL (7-18); CALCIUM LEVEL 8.2 MG/DL (8.8-10.2); CARBON DIOXIDE LEVEL 23 MEQ/L (21-32); CHLORIDE LEVEL 111 MEQ/L (98-107); CREATININE FOR GFR 0.57 MG/DL (0.55-1.30); GLOMERULAR FILTRATION RATE > 60.0 (>32); GLUCOSE, FASTING 85 MG/DL (70-100); LIPASE 512 U/L (73-393); POTASSIUM SERUM 4.1 MEQ/L (3.5-5.1); SODIUM LEVEL 141 MEQ/L (136-145)
[2022-02-16 08:34] LABS: MB/CK RELATIVE INDEX 2.07 (< OR =4)
[2022-02-16] MEDS: **NOTE PATIENT COMMENT** MISC XX SCH (09:31)
[2022-02-16] MEDS: SODIUM CHLORIDE 0.9% INJ 10 ML SYR IV SCH (20:05)
[2022-02-17 06:00] VITALS: BP 149/66
[2022-02-17 06:01] LABS: HEMATOCRIT 31.6 % (36.0-47.0); HEMOGLOBIN 9.9 g/dl (12.0-15.5); MEAN CORPUSCULAR HEMOGLOBIN 26.4 pg (27.0-33.0); MEAN CORPUSCULAR HGB CONC 31.3 g/dl (32.0-36.5); MEAN CORPUSCULAR VOLUME 84.3 fl (80.0-96.0); PLATELET COUNT, AUTOMATED 160 10^3/uL (150-450); RED BLOOD COUNT 3.75 10^6/uL (4.00-5.40)
[2022-02-17 06:25] LABS: BLOOD UREA NITROGEN 11 MG/DL (7-18); CALCIUM LEVEL 8.1 MG/DL (8.8-10.2); CARBON DIOXIDE LEVEL 26 MEQ/L (21-32); CHLORIDE LEVEL 110 MEQ/L (98-107); GLOMERULAR FILTRATION RATE > 60.0 (>32); GLUCOSE, FASTING 80 MG/DL (70-100); POTASSIUM SERUM 4.2 MEQ/L (3.5-5.1); SODIUM LEVEL 141 MEQ/L (136-145)
[2022-02-17] MEDS: NYSTATIN 500,000 U/5 ML SUSP UDC SS SCH ×3 (09:20→21:46)
[2022-02-17] MEDS: LACTOBACILLUS ACIDOPHILUS CAP (BACID) PO SCH (09:20)
[2022-02-17] MEDS: amLODIPine 5 MG TAB PO SCH (09:20)
[2022-02-17] MEDS: ENOXAPARIN 40MG/0.4ML SYRINGE (J1650 PER 10MG) SC SCH (09:21)
[2022-02-17] MEDS: POTASSIUM CHLORIDE 10MEQ SR TABLET PO SCH (09:21)
[2022-02-17] MEDS: **NOTE PATIENT COMMENT** MISC XX SCH (09:21)
[2022-02-17] MEDS: SODIUM CHLORIDE 0.9% INJ 10 ML SYR IV SCH (20:05)
[2022-02-17] MEDS: LIDOCAINE 5% (LIDODERM) PATCH TD SCH (21:46)
[2022-02-18] MEDS: ENOXAPARIN 40MG/0.4ML SYRINGE (J1650 PER 10MG) SC SCH (08:50)
[2022-02-18] MEDS: NYSTATIN 500,000 U/5 ML SUSP UDC SS SCH (08:50)
[2022-02-18 08:51] VITALS: BP 126/45
[2022-02-18] MEDS: POTASSIUM CHLORIDE 10MEQ SR TABLET PO SCH (08:51)
[2022-02-18] MEDS: LACTOBACILLUS ACIDOPHILUS CAP (BACID) PO SCH (08:51)
[2022-02-18] MEDS: amLODIPine 5 MG TAB PO SCH (08:51)
[2022-02-18] MEDS: **NOTE PATIENT COMMENT** MISC XX SCH (08:52)
[2022-02-18] MEDS ORDERED: AMLO1TAB24 PO (11:08)
[2022-02-18] MEDS ORDERED: RISATAB3 PO (11:08)
== END 2022-02-18 13:05 | DRG 394 ==
LOC: M ED 11:01 → M ED INP 15:28 → ENRESERV 16:29 → M MSPAV 17:27
PROVIDERS: ADMIT Internal Medicine; ATTEND Internal Medicine
PROC: 05H933Z Insertion of Infusion Device into Right Brachial Vein, Percutaneous Approach (ICD-10-PCS; principal; 2022-02-05 16:10)
DX: K52.1 Toxic gastroenteritis and colitis (principal); N17.9 Acute kidney failure, unspecified; E87.0 Hyperosmolality and hypernatremia; E87.2 Acidosis; F03.91 Unspecified dementia, unspecified severity, with behavioral disturbance; N39.0 Urinary tract infection, site not specified; E87.6 Hypokalemia; I10 Essential (primary) hypertension; M81.0 Age-related osteoporosis without current pathological fracture; E83.42 Hypomagnesemia; K86.89 Other specified diseases of pancreas; E86.0 Dehydration; F41.9 Anxiety disorder, unspecified; T44.5X5A Adverse effect of predominantly beta-adrenoreceptor agonists, initial encounter; B96.1 Klebsiella pneumoniae [K. pneumoniae] as the cause of diseases classified elsewhere; R07.89 Other chest pain; Z85.828 Personal history of other malignant neoplasm of skin; Z79.899 Other long term (current) drug therapy